=== PATIENT | male | born 1975 | race Caucasian/White ===

== ENCOUNTER 2017-03-09 16:22 | Emergency (ER) | payer BC, OTHER ==
[~2017-03-09] VITALS: Ht 175.3 cm; Wt 97.5 kg
[2017-03-09] MEDS ORDERED: LOSA25TA13 PO (16:52)
--- NOTE | 2017-03-09 18:00 | NUR ---
PT STATES NO LONGER DIZZY AND WISHES TO GO HOME, DR HARMON AWARE.
--- NOTE | 2017-03-09 18:27 | NUR ---
Dr Pierson at the bedside for eval and exam.
--- NOTE | 2017-03-09 18:38 | NUR ---
Patient discharged to home in stable conditon. Written and verbal after care instructions given. Patient verbalizes understanding of instructions.
[2017-03-09 18:42] VITALS: BP 139/103
== END 2017-03-09 18:43 | disposition home or self-care (01) ==
LOC: ER 16:23
DX: R42 Dizziness and giddiness (principal); F17.200 Nicotine dependence, unspecified, uncomplicated
CPT/HCPCS: 93005; A4663

== ENCOUNTER 2019-02-01 11:39 | Emergency (ER) | payer BC ==
[~2019-02-01] VITALS: Ht 175.3 cm; Wt 99.8 kg
[~2019-02-01 11:39] MED LIST: LOSA25TA27 PO
[2019-02-01 12:12] LABS: BASOPHILS # (AUTO) 0.1 K/uL (0.0-8.0); BASOPHILS % (AUTO) 1.4 % (0.0-2.0); EOSINOPHILS # (AUTO) 0.1 K/uL (0.0-0.7); EOSINOPHILS % (AUTO) 1.2 % (0.0-7.0); HEMATOCRIT 44.8 % (36.7-47.1); HEMOGLOBIN 15.3 g/dL (12.5-16.3); LYMPHOCYTES # (AUTO) 2.4 K/uL (20.0-40.0); LYMPHOCYTES % (AUTO) 41.1 % (20.5-51.5); MEAN CORPUSCULAR HGB CONC 34 g/dL (32.5-36.3); MEAN CORPUSCULAR VOLUME 87.5 fL (73.0-96.2); MONOCYTES # (AUTO) 0.3 K/uL (2.0-10.0); MONOCYTES % (AUTO) 4.8 % (0.0-11.0); NEUTROPHILS # (AUTO) 3.1 K/uL (1.8-8.9); NEUTROPHILS % (AUTO) 51.5 % (38.5-71.5); PLATELET COUNT (AUTO) 209 K/uL (152-348); RED BLOOD CELL COUNT(AUTO) 5.12 MIL/uL (4.06-5.63)
[2019-02-01 12:21] LABS: POTASSIUM 3.9 mmol/L (3.5-5.1)
[2019-02-01 12:43] LABS: BILIRUBIN,DIRECT 0.1 mg/dL (0.0-0.2); BILIRUBIN,TOTAL 0.6 mg/dL (0.2-1.0); TOTAL PROTEIN, SERUM 7.6 g/dL (6.4-8.2)
--- NOTE | 2019-02-01 12:59 | NUR ---
Patient discharged to home in stable conditon. Written and verbal after care instructions given. Patient verbalizes understanding of instructions.pt walks in steady gait. pt deneis any cp/sob/dizziness at this time. copy of all the images provided for follow up
[2019-02-01 13:03] VITALS: BP 133/89
== END 2019-02-01 13:05 | disposition other institution (70) ==
LOC: ER 11:39
DX: R07.9 Chest pain, unspecified (principal); F17.200 Nicotine dependence, unspecified, uncomplicated; Z79.899 Other long term (current) drug therapy
CPT/HCPCS: 36415; 70030-TC; 71045; 83690; 85025; 93005; A4663